=== PATIENT | female | born 1935 | race Caucasian/White ===

== ENCOUNTER 2018-07-22 22:00 | Emergency (ER) | payer MEDICARE ==
[~2018-07-22 22:00] MED LIST: ISOVUE-370 76%-LOCM 1 ML ONE
[2018-07-22] MEDS ORDERED: Ondansetron PF 4 MG/2 ML Vial ONE (22:11)
[2018-07-22] MEDS ORDERED: Promethazine HCl 25 MG/ML VIAL ONE (22:17)
[2018-07-22 22:37] LABS: #Basophils 0.1 thou/uL (0.0-0.2); #Eosinphils 0.3 thou/uL (0.0-0.7); #Lymphocytes 3.4 thou/uL (1.20-3.40); #Monocytes 0.9 thou/uL (0.11-0.59); %Eosinophils 2.2 % (0.0-10.0); %Monocytes 7.8 % (0.0-10.0); Hemoglobin 15.3 g/dL (12.0-16.0); Mean Corpuscular HGB CONC 33.8 g/dL (32.0-36.0); Mean Corpuscular Hemoglobin 30.9 pg (27.0-31.0); Mean Corpuscular Volume 91.6 fL (78.0-98.0); Mean Platelet Volume 8.7 fL (7.4-10.4); Platelet Count 288 thou/uL (130-400); Red Blood Cell (RBC) Count 4.95 mill/uL (4.20-5.40); White Blood Cell (WBC) Count 11.6 thou/uL (4.8-10.8)
[2018-07-22 22:48] LABS: ALT (SGPT) 16 U/L (8-55); AST (SGOT) 16 U/L (5-34); Albumin 4.4 g/dL (3.4-4.8); Alkaline Phosphatase 108 U/L (40-150); Anion Gap 15 mmol/L (10-20); BUN (Urea Nitrogen) 9 mg/dL (9.8-20.1); Bilirubin, Total 0.6 mg/dL (0.2-1.2); Calc. Creatinine Clearance 0 mL/min (70-130); Calcium 10.5 mg/dL (7.8-10.44); Carbon Dioxide 22 mmol/L (23-31); Chloride 103 mmol/L (98-107); Estimated GFR-MDRD 75; Globulin 2.6 g/dL (2.4-3.5); Glucose 154 mg/dL (83-110); Lipase 23 U/L (8-78); Potassium 3.9 mmol/L (3.5-5.1); Sodium 136 mmol/L (136-145)
[2018-07-23 00:53] LABS: Bilirubin Negative (Negative); Blood, Urine Trace (Negative); Clarity CLOUDY (Clear); Glucose, Urine (Dipstick) Negative (Negative); Leukocyte Large (Negative); Nitrite Negative (Negative); Protein, Urine (Dipstick) Negative (Neg-Trace); Urobilinogen 0.2 mg/dL (0.2-1.0); pH, Urine 5.5 (5.0-9.0)
[2018-07-23 00:56] LABS: Bacteria/HPF Rare-Few HPF (None Seen); Squamous Epithelial 0-3 HPF (0-3)
[2018-07-23 00:58] LABS: Pathc Cast-AUWi Flag 2.58 (0-2.49)
[2018-07-23 01:02] LABS: Hyaline Casts/LPF NONE SEEN LPF (0-3 Hyaline); Other Casts/LPF None Seen LPF (0-3 Hyaline)
--- NOTE | 2018-07-23 09:48 | CT ---
PRELIMINARY REPORT/[facility]/EMERGENCY AFTER HOURS PROCEDURE: EXAM: CT Abdomen and Pelvis With Contrast EXAM DATE/TIME: 07/23/2018 1:01 AM CLINICAL HISTORY: 82 years old, female; Epigastric; Patient HX: Er 8. 82yo F, h/o vertigo/dizziness, presenting with ve rtigo, n/v, and upper abdominal pain. Patient states has had intermittent episodes since March. Th is episode associated with abdominal pain. Patient states she has also had abdominal pain for the pas t few weeks as well, but has not been seen for it. No fevers/chills, no WISE, no cp/sob/mosher. TECHNIQUE: Imaging protocol: Axial computed tomography images of the abdomen and pelvis with intravenous contras t. Coronal reformatted images were created and reviewed. COMPARISON: No relevant prior studies available. FINDINGS: ABDOMEN: Liver: Normal attenuation. No mass. Gallbladder and bile ducts: Normal. No calcified stones. No ductal dilation. Pancreas: Normal. No ductal dilation. Spleen: No splenomegaly. No masses Adrenals: Normal. No mass. Kidneys and ureters: Normal. No hydronephrosis. Stomach and bowel: Extensive diverticulosis. Appendix: No evidence of appendicitis. PELVIS: Bladder: Unremarkable as visualized. Reproductive: The uterus has been surgically removed. Wall thickening of the cervix ABDOMEN and PELVIS: Intraperitoneal space: No free air. No significant fluid collection. Bones/joints: T11 and T12 compression fractures of indeterminate age Osteopenia. Soft tissues: Small fat-containing anterior abdominal wall hernia. Vasculature: Dense atherosclerotic vascular calcifications are identified. Lymph nodes: No enlarged lymph nodes. IMPRESSION: 1. No evidence of acute intra-abdominal or pelvic pathology. 2. Extensive diverticulosis. 3. There are additional nonemergent findings discussed in the body of the report. Thank you for allowing us to participate in the care of your patient. Dictated and Authenticated by: Serge Tidwell MD 07/23/2018 1:48 AM Central Time ([place] & [place]) FINAL REPORT ABDOMEN CT WITH CONTRAST PELVIC CT WITH CONTRAST: HISTORY: Dizziness. Vertigo. Nausea and vomiting. Pain. COMPARISON: None. FINDINGS: This report is in agreement with the preliminary report by [facility]. No evidence of solid organ abnormali ty. CT evidence of cholelithiasis without evidence of cholecystitis. There is extensive colonic div erticulosis, without evidence of diverticulitis. There is an anterior left spigelian hernia containi ng mesenteric fat and segment of colon through the defect. No associated obstruction. Symmetric enh ancement of the kidneys. No obstructive uropathy. Appendix is not appreciated. Nevertheless, no in flammation with regards to the cecal apex. Indeterminate compression fractures at the distal thoraci c spine. If there is pain or point tenderness, consider MRI. POS: OFF
== END 2018-07-23 02:10 | disposition home or self-care (01) ==
LOC: ERS 22:00
DX: H81.399 Other peripheral vertigo, unspecified ear (principal); N30.00 Acute cystitis without hematuria; K57.30 Diverticulosis of large intestine without perforation or abscess without bleeding; E03.9 Hypothyroidism, unspecified; I10 Essential (primary) hypertension; F32.9 Major depressive disorder, single episode, unspecified; Z79.899 Other long term (current) drug therapy
CPT/HCPCS: 36415; 74177; 80053; 81003; 81015; 83605; 83690; 83735; 84484; 85025; 93005; 96365; J2405; J2550; Q9966

== ENCOUNTER 2018-10-10 08:22 | Outpatient (CLI) | payer MEDICARE ==
--- NOTE | 2018-10-10 12:11 | NM ---
NUCLEAR MEDICINE HEPATOBILIARY SCAN: DATE: 10/10/2018 HISTORY: 82-year-old female with unspecified abdominal pain TECHNIQUE: Technetium 99m-mebrofenin dose: 5.5 mCi. Fatty meal Ensure: 8 oz. Tc 99- mebrofenin injected IV. Dynamic anterior scintigraphy of abdomen for one hour. Fatty meal admi nistered. Additional dynamic anterior scintigraphy of abdomen. Counts obtained over the gallbladder. Time-activity curve generated. FINDINGS: There is normal uptake and washout of radiopharmaceutical agent at the liver. The gallbladder fills n ormally. Bowel activity is visualized. The gallbladder ejection fraction is normal: 65 % IMPRESSION: Normal.
== END 2018-10-10 08:23 | disposition home or self-care (01) ==
LOC: NM 08:22
PROVIDERS: ATTEND Internal Medicine Gastroenterology
DX: R10.9 Unspecified abdominal pain (principal); K80.80 Other cholelithiasis without obstruction
CPT/HCPCS: 78227; A9537